=== PATIENT | female | born 1955 | race Caucasian/White ===

== ENCOUNTER → 2021-06-02 | Outpatient (CLI) | payer OTHER | LOC: COL.RAD 09:25 | DX: C50.912 Malignant neoplasm of unspecified site of left female breast (principal) | CPT/HCPCS: A9503 ==

== ENCOUNTER → 2021-06-10 | Outpatient (CLI) | payer OTHER | LOC: COL.RAD 10:00 | DX: C50.912 Malignant neoplasm of unspecified site of left female breast (principal); C79.51 Secondary malignant neoplasm of bone; N28.89 Other specified disorders of kidney and ureter; Z90.12 Acquired absence of left breast and nipple; Z90.710 Acquired absence of both cervix and uterus | CPT/HCPCS: J1644; Q9967 ==

== ENCOUNTER → 2021-10-30 | Outpatient (CLI) | payer OTHER | LOC: COL.RAD 08:48 | DX: C50.912 Malignant neoplasm of unspecified site of left female breast (principal); C50.919 Malignant neoplasm of unspecified site of unspecified female breast; C79.51 Secondary malignant neoplasm of bone | CPT/HCPCS: A9503; Q9967 ==

== ENCOUNTER → 2022-01-22 | Outpatient (CLI) | payer MEDICARE, OTHER | LOC: COL.RAD 09:00 | DX: C50.912 Malignant neoplasm of unspecified site of left female breast (principal); C79.51 Secondary malignant neoplasm of bone; J90 Pleural effusion, not elsewhere classified | CPT/HCPCS: Q9967 ==

== ENCOUNTER 2022-03-25 15:28 | Inpatient (IN) | payer MEDICARE, OTHER ==
[2022-03-25] VITALS (295 sets, daily range): BP systolic 146–154; BP diastolic 92–100; PULSE 88–95; TEMP 98–99.1; O2SAT 79–100
[~2022-03-25] VITALS: Ht 162.6 cm; Wt 65.8 kg
[~2022-03-25 15:28] MED LIST: CEPHALEXIN500 M1 PO
--- NOTE | 2022-03-25 16:52 | NUR ---
PT ADMITTED FROM [facility] BY DR. WHYTE DUE TO HIGH BLOOD SUGARS OVER THE PAST 4-5 DAYS. EDWINA AT THE BEDSIDE; HAS KNOWLEDE OF PAST AND CURRENT MEDICAL ISSUES. PT HAS BEEN EXPERIENCING NAUSEA, VOMITING, DIARRHEA, EXCESSIVE THIRST, AND EXCESSIVE URINATION.PT CURRENTLY LETHARGIC AND IS UNABLE TO ANSWER QUESTIONS WITHOUT FALLING ASLEEP.
[2022-03-25 18:23] LABS: HEMOGLOBIN 11.8 g/dl (12.5-16.0); MEAN CELL VOLUME 87 fl (80.0-100.0); MEAN CORPUSCULAR HEMOGLOBIN 28 pg (27-31); MEAN CORPUSCULAR HGB CONC 32 g/dl (33.0-37.0); MEAN PLATELET VOLUME 10.3 fl (7.4-10.4); PLATELET COUNT 315 K/mm3 (130-400); RED BLOOD COUNT 4.25 M/mm3 (4.10-5.30); REDCELL DISTRIBUTION WIDTH-CV 15.1 % (11.5-14.5)
[2022-03-25 18:28] LABS: PH 5 (5-8); SQUAMOUS EPITHELIAL 0-2 /hpf (0-10); URINE APPEARANCE Clear (CLEAR/HAZY); URINE BACTERIA None Seen /hpf (NONE SEEN); URINE BILIRUBIN Negative (NEGATIVE); URINE BLOOD Negative (NEGATIVE); URINE COLOR Straw (YELLOW); URINE GLUCOSE 3+ (NEGATIVE); URINE KETONE Trace (NEGATIVE); URINE LEUKOCYTE ESTERASE Negative (NEGATIVE); URINE NITRATE Negative (NEGATIVE); URINE PROTEIN(semi-quant) Negative (NEGATIVE); URINE UROBILINOGEN Negative (NEGATIVE)
[2022-03-25 18:39] LABS: ALANINE AMINOTRANSFERASE 22 U/L (0-55); ALBUMIN 3.4 gm/dL (3.4-4.8); ALKALINE PHOSPHATASE 125 U/L (40-150); ANION GAP 21 mmol/L (7-16); AST,SGOT 13 U/L (5-34); BILIRUBIN,TOTAL 0.5 mg/dL (0.2-1.2); BLOOD UREA NITROGEN 56 mg/dL (10-20); CALCIUM 9.4 mg/dL (8.4-10.2); CHLORIDE 97 mmol/L (98-107); CREATININE, serum 1.76 mg/dL (0.57-1.11); POTASSIUM 4.5 mmol/L (3.5-4.5); SODIUM 130 mmol/L (136-145); TOTAL PROTEIN 7.3 gm/dL (6.2-8.1)
[2022-03-25 18:41] LABS: CARBON DIOXIDE 12 mmol/L (23-31); GLUCOSE 807 mg/dL (70-99)
[2022-03-25 18:45] LABS: COLLECTION METHOD CLEAN CATCH
[2022-03-25 18:52] LABS: TROPONIN-I < 0.010 ng/mL (0.00-0.033)
[2022-03-25 19:22] LABS: MAGNESIUM 2.2 mg/dL (1.6-2.6); PHOSPHOROUS 3.5 mg/dL (2.3-4.7)
[2022-03-25 19:25] LABS: BAND 1 % (0-10); LYMPHOCYTE 11 % (20.0-51.0); METAMYELOCYTE 1 % (0-0); NEUTROPHILS 79 % (42.0-75.2); PLATELET ESTIMATE NORMAL (NORMAL)
[2022-03-25 19:26] LABS: SCHISTOCYTES 1+
[2022-03-25 19:27] LABS: ANISOCYTOSIS 1+
[2022-03-25 19:28] LABS: BURR CELLS 1+
[2022-03-25 19:33] LABS: ARTERIAL BLD GAS O2 SATURATION 94.8 % (92-100); ARTERIAL BLD GAS TCO2 CT 13.2; ARTERIAL BLOOD GAS BASE EXCESS -8.1 (-2-2); ARTERIAL BLOOD GAS HCO3 12.7 meq/L (22-26); ARTERIAL BLOOD GAS PCO2 17.1 mmHg (35-45); ARTERIAL BLOOD GAS PO2 72.7 mmHg (80-100); ARTERIAL BLOOD GAS pH 7.49 (7.35-7.45)
--- NOTE | 2022-03-25 19:35 | NUR ---
INSULIN DRIP INITIATED AT 5UN/HR WITH 5UN BOLUS AT THIS TIME PER ORDER, LAST GLUCOSE PER LAB WAS 807 AT 1802.
--- NOTE | 2022-03-25 20:00 | NUR ---
PM ASSESSMENT COMPLETE. PT ORIENTED TO PERSON AND PLACE, SLOW TO RESPOND TO QUESTIONS. NEW AVINA CATHETER PLACED PER ORDER. INSULIN DRIP INITIATED VIA IMPLANTED PORT. PT DENIES PAIN, HOWEVER APPEARS TO HAVE PAIN WHEN MOVING. ONLY REQUEST AT THIS TIME IS A GLASS OF MILK, HOWEVER NPO STATUS EXPLAINED TO PATIENT PER CURRENT ORDERS AND DKA STATUS. WILL BRING MOUTH SWABS/ASSIST WITH ORAL CARE. WILL CONTINUE TO MONITOR.
--- NOTE | 2022-03-25 21:00 | NUR ---
FSBS ON METER READING HI, GLUCOSE VERIFICATION DRAWN AND SENT TO LAB AT 2040. RESULT 525. BASED ON PREVIOUS GLUCOSE LEVEL AT 1802, AVERAGE HOURLY DROP OF 104. INSULIN DRIP TITRATED PER FLOWSHEET. WILL CONTINUE TO MONITOR.
[2022-03-25] MEDS ORDERED: OSCAL 500 TAB500 MG (21:20)
[2022-03-25] MEDS ORDERED: CENTRUM SILVER1 TAB (21:21)
[2022-03-25] MEDS ORDERED: DULOXETINE HCL40 MG PO (21:23)
[2022-03-25] MEDS ORDERED: PEPCID 20MG TAB20 MG PO (21:23)
[2022-03-25] MEDS ORDERED: FOLIC ACID 11 MG/TA1 PO (21:24)
[2022-03-25] MEDS ORDERED: NEURONTIN100 MG/CAP PO (21:24)
[2022-03-25] MEDS ORDERED: SYNTHROID0.1 MG/TAB PO (21:25)
[2022-03-25] MEDS ORDERED: COZAAR 25MG25 MG/TAB PO (21:25)
[2022-03-25] MEDS ORDERED: GLUCOPHAGE500 MG/TAB PO (21:26)
[2022-03-25] MEDS ORDERED: ZOFRAN ODT8 MG PO (21:26)
[2022-03-25] MEDS ORDERED: PIQRAY1 EACH PO (21:27)
[2022-03-25 21:28] LABS: CALCIUM 8.7 mg/dL (8.4-10.2); CREATININE, serum 1.39 mg/dL (0.57-1.11); POTASSIUM 3.6 mmol/L (3.5-4.5)
[2022-03-25] MEDS ORDERED: K-DUR20 MEQ PO (21:28)
[2022-03-25] MEDS ORDERED: SLOW FE142 MG PO (21:29)
[2022-03-25] MEDS ORDERED: MASON NATURAL2000 IU PO (21:29)
[2022-03-25 23:13] LABS: CALCIUM 8.9 mg/dL (8.4-10.2); CREATININE, serum 1.33 mg/dL (0.57-1.11); POTASSIUM 3.4 mmol/L (3.5-4.5)
[2022-03-26] VITALS (1295 sets, daily range): BP systolic 118–135; BP diastolic 60–90; PULSE 84–102; TEMP 97.8–98.5; O2SAT 82–100
[2022-03-26 02:03] LABS: CALCIUM 8.8 mg/dL (8.4-10.2); CREATININE, serum 1.22 mg/dL (0.57-1.11); POTASSIUM 4.1 mmol/L (3.5-4.5)
[2022-03-26 03:32] LABS: CALCIUM 8.8 mg/dL (8.4-10.2); CREATININE, serum 1.21 mg/dL (0.57-1.11); POTASSIUM 4.4 mmol/L (3.5-4.5)
[2022-03-26 05:56] LABS: CALCIUM 8.8 mg/dL (8.4-10.2); CREATININE, serum 1.16 mg/dL (0.57-1.11); POTASSIUM 3.7 mmol/L (3.5-4.5)
[2022-03-26 07:35] LABS: CALCIUM 8.8 mg/dL (8.4-10.2); CREATININE, serum 1.14 mg/dL (0.57-1.11); POTASSIUM 4.2 mmol/L (3.5-4.5)
--- NOTE | 2022-03-26 09:24 | NUR ---
Initial visit attempt; [employer] offers card that enlightens patient to the availability of Spiritual Care at our hospital.
--- NOTE | 2022-03-26 09:27 | NUR ---
Home med rec states patient taking chemoptherapy agent: alpelisib (Piqray). Staff should follow precautions when handling urine and feces for 3 days after last dose or ongoing if actively taking. Notified care team and placed sign outside patient room. Also verified with pharmacy staff to wear double chemo tested gloves if administering.
[2022-03-26 09:43] LABS: CALCIUM 8.6 mg/dL (8.4-10.2); CREATININE, serum 1.06 mg/dL (0.57-1.11); POTASSIUM 4.7 mmol/L (3.5-4.5)
--- NOTE | 2022-03-26 11:08 | NUR ---
packing room worker met with patient to complete intake. Patient reports that she lives at home with her Rafael ([phone]). Patient reports that she is unable to do her ADL's and that her daughter Juana([phone]) helps her. Patient states that she has to utilize a walker to assist with ambulation. PCP is and she see's Dr. Fox for cancer treatments. She take an oral chemo medication that her brought to the hospital. Patient utilizes [facility] pharmacy in [facility] for prescription needs. Patient does have a DPOA-HC/ living will/ DNR that her Rafael brought to the facility. PAlliative care consult requested.
[2022-03-26 11:43] LABS: CALCIUM 8.7 mg/dL (8.4-10.2); CREATININE, serum 1.12 mg/dL (0.57-1.11); POTASSIUM 4.5 mmol/L (3.5-4.5)
--- NOTE | 2022-03-26 13:58 | NUR ---
Several visit attempts; Follow-up with the rd [facility] as patient slept.
--- NOTE | 2022-03-26 15:36 | NUR ---
Met with patient's bedside. Patient sleeping thoughout conversation but did verbally answer that she had no discomfort when directly asked. able to list dates and medications and thorough plan they have been following for cancer treatment. He stated they have also had conversations with patient's PCP about quality of life. At the moment, patient and would like to continue as is. ANTHONY Iyer also at bedside so asked if or patient had ever thought about home health. has had the patient in PT twice a week and states that since he is retired, he is able to be with the patient at all times. Offered our contact information and he thanked us for the visit.
--- NOTE | 2022-03-26 15:56 | NUR ---
ANTHONY and palliative care RN met with patient and patient's to talk about the patients goals of care. Both the patient and her are in agreement that they would like to keep doing treatments for her cancer. She has the bone mets since 2018. states that she had [facility] services but after 10 days "Medicare wouldn't cover it" so it has since ended. Patients states that he not only takes care of the patient but he is also the caregiver for his mother who lives at home with them. states that two weeks ago the patient started going to out patient therapy at [facility].
--- NOTE | 2022-03-26 20:25 | NUR ---
PM ASSESSMENT COMPLETE. PT ASSISTED TO FINISH TEA AND MILK FROM DINNER [employer]RAY. REQUESTS NOTHING ELSE. DENIES PAIN. LUE WITH NOTED LYMPHEDEMA SECONDARY TO PREVIOUS MASTECTOMY. LIMB ALERT BRACELET ON. PT POSITIONED PER COMFORT AT THIS TIME, BLE AND LUE ELEVATED ON PILLOWS. WILL CONTINUE TO MONITOR.
[2022-03-27] VITALS (1405 sets, daily range): BP systolic 106–139; BP diastolic 71–99; PULSE 92–99; TEMP 97.9–98.2; O2SAT 72–100
[2022-03-27 05:43] LABS: MEAN CELL VOLUME 86 fl (80.0-100.0); MEAN CORPUSCULAR HEMOGLOBIN 28 pg (27-31); MEAN CORPUSCULAR HGB CONC 33 g/dl (33.0-37.0); MEAN PLATELET VOLUME 9.6 fl (7.4-10.4); PLATELET COUNT 293 K/mm3 (130-400); RED BLOOD COUNT 3.91 M/mm3 (4.10-5.30); REDCELL DISTRIBUTION WIDTH-CV 15.6 % (11.5-14.5)
[2022-03-27 05:45] LABS: HEMATOCRIT 33.5 % (37.0-47.0)
[2022-03-27 05:59] LABS: CALCIUM 8.5 mg/dL (8.4-10.2); CREATININE, serum 1.04 mg/dL (0.57-1.11); POTASSIUM 3.8 mmol/L (3.5-4.5)
[2022-03-27 06:03] LABS: BAND 3 % (0-10); EOSINOPHIL 1 % (0-4); LYMPHOCYTE 9 % (20.0-51.0); NEUTROPHILS 79 % (42.0-75.2); PLATELET ESTIMATE NORMAL (NORMAL)
--- NOTE | 2022-03-27 07:14 | NUR ---
RECEIVED BEDSIDE SHIFT REPORT FROM TASHI SPEAR. PATIENT IS LYING IN BED WITH EYES OPEN. PATIENT IS HARD OF HEARING PER REPORT. VITAL SIGNS STABLE. AVINA CATHETER STILL IN PLACE. PATENT AND DRAINING TO GRAVITY. PATIENT'S CHEST PORT IN PLACE, ACCESSED, PATENT AND WITH GOOD BLOOD RETURN. CALL LIGHT WITHIN REACH. NO FLUIDS OR MEDS RUNNING AT THIS TIME.
--- NOTE | 2022-03-27 09:51 | NUR ---
PATIENT'S , JIMMIE, AT BEDSIDE. GIVEN UPDATE AND ADDRESSED QUESTIONS AND CONCERNS.
--- NOTE | 2022-03-27 09:51 | NUR ---
DR. BHATT AT BEDSIDE. DISCUSSED PATIENT PLAN OF CARE. ORDERS RECEIVED AND QUESTIONS ADDRESSED. AGREEABLE TO NURSE SUGGESTIONS OF TAKING AVINA OUT, A DOSE OF LASIX AND RESUMING CHEMOTHERAPY MEDICATION.
--- NOTE | 2022-03-27 10:12 | NUR ---
RESPIRATORY THERAPY ATTEMPTED TO DRAW ABG WITH NO SUCCESS. CALLED DR. BHATT TO SEE IF A VBG WOULD BE A DECENT SUBSTITUTE. AGREEABLE. DRAWN FROM PATIENT'S CENTRAL LINE AND GIVEN TO RESPIRATORY. NEW ORDERS PLACED.
--- NOTE | 2022-03-27 10:32 | NUR ---
CASE MANAGEMENT CAME TO SEE PATIENT AND ALSO TALKED WITH . THEY ARE AGREEABLE TO HAVING HOME CARE AND PHYSICAL/OCCUPATIONAL THERAPY WORK WITH PATIENT.
--- NOTE | 2022-03-27 14:57 | NUR ---
Referral faxed to [facility]
[2022-03-28] VITALS (706 sets, daily range): BP systolic 118–127; BP diastolic 73–91; PULSE 91–103; TEMP 98–98.6; O2SAT 90–98
--- NOTE | 2022-03-28 02:00 | NUR ---
PT ARRIVED VIA EMS FROM [facility]. AWAKE, AAOX4. DENIES PAIN, SOA, OR N/V. NOTED SWELLING TO L ELBOW, MARKED FROM PREVIOUS FACILITY AND NEW BORDER MARKED AT THIS TIME. CALL TO DR. MURILLO TO NOTIFY OF PT'S ARRIVAL, STATES OK TO START ANTIBIOTICS NOW AND HE WILL BE IN IN A FEW HOURS. PT TACHYCARDIC AND SBP 90-100 AT THIS TIME. NS INFUSING AT 150ML/HR TO RFA PIC. WILL CONTINUE TO MONITOR.
[2022-03-28 05:47] LABS: HEMOGLOBIN 11.4 g/dl (12.5-16.0); MEAN CELL VOLUME 85 fl (80.0-100.0); MEAN CORPUSCULAR HEMOGLOBIN 28 pg (27-31); MEAN CORPUSCULAR HGB CONC 33 g/dl (33.0-37.0); MEAN PLATELET VOLUME 10.2 fl (7.4-10.4); PLATELET COUNT 317 K/mm3 (130-400); RED BLOOD COUNT 4.05 M/mm3 (4.10-5.30); REDCELL DISTRIBUTION WIDTH-CV 15.6 % (11.5-14.5)
[2022-03-28 06:10] LABS: HEMATOCRIT 34.5 % (37.0-47.0)
[2022-03-28 06:16] LABS: CALCIUM 8.5 mg/dL (8.4-10.2); CREATININE, serum 1.18 mg/dL (0.57-1.11); POTASSIUM 3.4 mmol/L (3.5-4.5)
[2022-03-28 06:50] LABS: BAND 1 % (0-10); EOSINOPHIL 3 % (0-4); LYMPHOCYTE 22 % (20.0-51.0); NEUTROPHILS 71 % (42.0-75.2)
[2022-03-28 06:52] LABS: ANISOCYTOSIS 1+; HYPOCHROMIA 1+; PLATELET ESTIMATE NORMAL (NORMAL)
[2022-03-28 06:53] LABS: TEAR DROP CELLS 1+
--- NOTE | 2022-03-28 07:00 | NUR ---
Pt resting in bed. VSS. Pt denies needs at this time. Pt has call light within reach.
[2022-03-28] MEDS ORDERED: LEVEMIR FLEX100 U/ML SQ (13:19)
--- NOTE | 2022-03-28 13:51 | NUR ---
Marly with social work notified of discharge and need for HHC and PT. Pt's back bedside.
--- NOTE | 2022-03-28 13:52 | NUR ---
SW informed that patient would be discharging on this day and would need assistance with HH service set up. SW spoke with patient's spouse who is the caregiver of patient. Spouse stated that preference for services is [facility]. DC documentation obtained and faxed to facility. SW also contacted radio station manager staff at [facility] to inform of patient discharge. Staff will be contacting spouse to set up services. Nothing further.
--- NOTE | 2022-03-28 14:50 | NUR ---
IV, TELE, AND PORT DC'D. PT DRESSED AND UP TO WHEELCHAIR. DISCHARGE INSTRUCTIONS DISCUSSED WTIH PT AND HER . DISCUSSED HOMECARE, NEW INSULIN, AND FOLLOW UPS. HOME MEDS GIVEN BACK TO PT. ALL QUESTIONS ANSWERED. PT WHEELED OUT TO CAR FOR DISCHARGE.
== END 2022-03-28 14:58 | disposition home health service (06) | DRG 637 ==
LOC: ICU 15:28
PROVIDERS: Family Medicine; Nurse Practitioner Family; ADMIT Student in an Organized Health Care Education/Training Program
DX: E11.10 Type 2 diabetes mellitus with ketoacidosis without coma (principal); G93.41 Metabolic encephalopathy; N17.9 Acute kidney failure, unspecified; L97.119 Non-pressure chronic ulcer of right thigh with unspecified severity; C79.51 Secondary malignant neoplasm of bone; E87.1 Hypo-osmolality and hyponatremia; E87.4 Mixed disorder of acid-base balance; E44.0 Moderate protein-calorie malnutrition; E87.3 Alkalosis; I10 Essential (primary) hypertension; E03.9 Hypothyroidism, unspecified; F32.A Depression, unspecified; Z20.822 Contact with and (suspected) exposure to COVID-19; K21.9 Gastro-esophageal reflux disease without esophagitis; G62.9 Polyneuropathy, unspecified; F41.9 Anxiety disorder, unspecified; C50.919 Malignant neoplasm of unspecified site of unspecified female breast; E11.40 Type 2 diabetes mellitus with diabetic neuropathy, unspecified; D72.829 Elevated white blood cell count, unspecified; D64.9 Anemia, unspecified; E11.622 Type 2 diabetes mellitus with other skin ulcer; Z79.890 Hormone replacement therapy; Z79.84 Long term (current) use of oral hypoglycemic drugs; Z87.891 Personal history of nicotine dependence; Z88.6 Allergy status to analgesic agent; Z88.8 Allergy status to other drugs, medicaments and biological substances
CPT/HCPCS: 99223-AI; 99233-AI; 99239; J1650; J1815; J1940; J3480; J7030

== ENCOUNTER 2022-04-27 11:28 | Day surgery (SDC) | payer MEDICARE, OTHER ==
[~2022-04-27] VITALS: Ht 135.8 cm; Wt 61.4 kg
[~2022-04-27 11:28] MED LIST changes: +CENTRUM SILVER1 TAB PO; +COZAAR 25MG25 MG/TAB PO; +DULOXETINE HCL40 MG PO; +FOLIC ACID 11 MG/TA1 PO; +GLUCOPHAGE500 MG/TAB PO; +K-DUR20 MEQ PO; +LEVEMIR FLEX100 U/ML SQ; +MASON NATURAL2000 IU PO; +NEURONTIN100 MG/CAP PO; +OSCAL 500 TAB500 MG PO; +PEPCID 20MG TAB20 MG PO; +PIQRAY1 EACH PO; +SLOW FE142 MG PO; +SYNTHROID0.1 MG/TAB PO; +ZOFRAN ODT8 MG PO
[2022-04-27] MEDS ORDERED: LEVEMIR FLEX100 U/ML SQ (14:20)
[2022-04-27 14:30] VITALS: BP 116/60; PULSE 84; TEMP 97.3
--- NOTE | 2022-04-27 14:30 | NUR ---
1430 ADMITTED TO ROOM 8 FROM PACU. PATIENT AWAKE, ALERT. RESP CLEAR SPONTANEOUS. VITAL SIGNS OBTAINED. PATIENT DENIES PAIN. ALLEVYN DRESSING TO RIGHT HIP CLEAN DRY AND INTACT. IN ROOM. 1515 TOLERATES PO JUICE WITHOUT NAUSEA. 1530 DISCHARGE INSTRUCTIONS REVIEWED WITH PATIENT AND VERBALIZING UNDERSTANDING. COPY OF INSTRUCTIONS AND EDUCATIONAL MATERIALS PROVIDED. 1547 SITS ON EDGE OF CART. DRESSES SELF WITH ASSISTANCE FROM .
[2022-04-27 14:45] VITALS: BP 107/57; PULSE 82
[2022-04-27 15:00] VITALS: BP 123/65; PULSE 80
[2022-04-27 15:15] VITALS: BP 125/66; PULSE 80
[2022-04-27 15:45] VITALS: BP 121/72; PULSE 84
[2022-04-27 16:08] VITALS: BP 112/81; PULSE 88; TEMP 97.8
== END 2022-04-27 15:55 | disposition home or self-care (01) ==
LOC: SDCO 11:28
DX: L89.213 Pressure ulcer of right hip, stage 3 (principal); C50.912 Malignant neoplasm of unspecified site of left female breast; C79.51 Secondary malignant neoplasm of bone; E11.9 Type 2 diabetes mellitus without complications; Z79.4 Long term (current) use of insulin; Z79.84 Long term (current) use of oral hypoglycemic drugs
CPT/HCPCS: J0690; J1100; J2405; J2704; J3010; J7120

== ENCOUNTER → 2022-05-27 | Outpatient (CLI) | payer MEDICARE, OTHER | LOC: COL.VAS 10:00 | DX: I51.7 Cardiomegaly (principal); I34.0 Nonrheumatic mitral (valve) insufficiency; C50.912 Malignant neoplasm of unspecified site of left female breast ==

== ENCOUNTER 2022-06-16 08:54 | Outpatient (CLI) | payer MEDICARE, OTHER ==
[2022-06-16] VITALS (11 sets, daily range): BP systolic 100–128; BP diastolic 56–93; PULSE 73–83; TEMP 97.4–98.7
[~2022-06-16] VITALS: Ht 135.8 cm; Wt 55.6 kg
[2022-06-16] MEDS ORDERED: LEVEMIR FLEX100 U/ML SQ (09:33)
== END 2022-06-16 16:10 | disposition home or self-care (01) ==
LOC: EUO 08:54
DX: C50.912 Malignant neoplasm of unspecified site of left female breast (principal)
CPT/HCPCS: J1644; J7050; P9016

== ENCOUNTER → 2022-08-20 | Outpatient (CLI) | payer MEDICARE, OTHER | LOC: COL.VAS 08:49 | DX: C50.912 Malignant neoplasm of unspecified site of left female breast (principal) ==

== ENCOUNTER 2022-12-20 19:05 | Inpatient (IN) | payer MEDICARE, OTHER ==
[~2022-12-20] VITALS: Ht 162.6 cm; Wt 57.3 kg
[2022-12-20 19:48] LABS: MEAN CELL VOLUME 97 fl (80.0-100.0); MEAN CORPUSCULAR HGB CONC 32 g/dl (33.0-37.0); MEAN PLATELET VOLUME 9.4 fl (7.4-10.4); PLATELET COUNT 246 K/mm3 (130-400); REDCELL DISTRIBUTION WIDTH-CV 17.7 % (11.5-14.5)
[2022-12-20 20:02] LABS: ALBUMIN 2.6 gm/dL (3.4-4.8); BILIRUBIN,TOTAL 0.4 mg/dL (0.2-1.2); CALCIUM 9.2 mg/dL (8.4-10.2); CREATININE, serum 1.14 mg/dL (0.57-1.11); POTASSIUM 3.4 mmol/L (3.5-4.5); TOTAL PROTEIN 6.3 gm/dL (6.2-8.1)
[2022-12-20 20:05] LABS: HEMATOCRIT 29.2 % (37.0-47.0); HEMOGLOBIN 9.4 g/dl (12.5-16.0); MEAN CORPUSCULAR HEMOGLOBIN 31 pg (27-31)
[2022-12-20 20:32] LABS: ANISOCYTOSIS 2+; BAND 12 % (0-10); LYMPHOCYTE 6 % (20.0-51.0); NEUTROPHILS 80 % (42.0-75.2); OVALOCYTES 1+; PLATELET ESTIMATE NORMAL (NORMAL)
[2022-12-20 21:52] VITALS: BP 103/56; PULSE 91; TEMP 101.1
--- NOTE | 2022-12-20 22:22 | NUR ---
PT ARRIVED TO ROOM 304. PT RESTING CALMLY IN BED. PT ALERT AND ORIENTED X3 SOME TIMES STRUGGLES WITH SITUATION. PTS SPEECH IS SLIGHTLY SLURRED AND JUMBLED BUT PATIENT IS ABLE TO FORM CLEAR UNDERSTANDABLE SENTENCES
[2022-12-20 22:26] VITALS: BP 93/62; PULSE 115; TEMP 97.6
[2022-12-20 23:38] VITALS: PULSE 82
[2022-12-21 02:44] VITALS: BP 95/58; PULSE 66; TEMP 97.9
[2022-12-21 06:38] LABS: MEAN CELL VOLUME 100 fl (80.0-100.0); MEAN CORPUSCULAR HGB CONC 32 g/dl (33.0-37.0); MEAN PLATELET VOLUME 9.8 fl (7.4-10.4); PLATELET COUNT 198 K/mm3 (130-400); RED BLOOD COUNT 2.38 M/mm3 (4.10-5.30); REDCELL DISTRIBUTION WIDTH-CV 17.8 % (11.5-14.5)
[2022-12-21 06:39] LABS: HEMATOCRIT 23.9 % (37.0-47.0); HEMOGLOBIN 7.6 g/dl (12.5-16.0); MEAN CORPUSCULAR HEMOGLOBIN 32 pg (27-31)
[2022-12-21 06:52] LABS: CALCIUM 8.2 mg/dL (8.4-10.2); CREATININE, serum 0.97 mg/dL (0.57-1.11); MAGNESIUM 1.8 mg/dL (1.6-2.6); POTASSIUM 3.9 mmol/L (3.5-4.5)
--- NOTE | 2022-12-21 07:00 | NUR ---
PT IS RESTING IN BED. PT HAS NS RUNNING. PT IN ISOLATION FOR COVID. BEDALARM ACTIVE. PT HAS CALL LIGHT AND INSTRUCTED TO CALL WITH ALL NEEDS.
[2022-12-21 07:16] LABS: ANISOCYTOSIS 2+; BAND 8 % (0-10); LYMPHOCYTE 11 % (20.0-51.0); METAMYELOCYTE 2 % (0-0); NEUTROPHILS 76 % (42.0-75.2); PLATELET ESTIMATE NORMAL (NORMAL)
[2022-12-21 07:35] VITALS: BP 98/64; PULSE 60; TEMP 97.5
[2022-12-21 12:02] VITALS: BP 101/66; PULSE 60; TEMP 97.7
--- NOTE | 2022-12-21 13:05 | NUR ---
SW attempted to contact patient via room phone due to covid + and was unsuccessful. Phone call made to the patients Sherif ([phone]) to complete intake. Per Sherif, together they live at home alone in [place]. Patient is someone independent with her ADL's but her spouse has to assist with showering and dressing. Patient utilizes a walker to assist with ambulation and have a shower transfer bench and grab bars installed in the bathroom. Patient has no home oxygen needs. PCP is and she sees for oncology needs. Patient does have a DPOA-HC established listing [facility] and her daughter Juana ([phone]) which can be located in her EMR. Per Sherif, patient has had home health services in the past but in unsure of what agency it was through. PT/OT order requested to hospitalist. Discharge plan: Home w/ HH vs. SNF
--- NOTE | 2022-12-21 14:44 | NUR ---
STATES PT'S MENTATION AND NEURO STATUS AT BASELINE. PT IS ORIENTED BUT SLOW TO RESPOND. PT ANSWERS QUESTIONS APPROPRIATELY. NOTIFIED.
[2022-12-21 14:54] LABS: COLLECTION METHOD CLEAN CATCH
[2022-12-21 15:01] LABS: PH 5.5 (5.0-8.5); URINE APPEARANCE Clear (CLEAR/HAZY); URINE COLOR Yellow (YELLOW); URINE GLUCOSE Negative (NEGATIVE); URINE KETONE Negative (NEGATIVE); URINE NITRATE Negative (NEGATIVE); URINE PROTEIN(semi-quant) 1+ (NEGATIVE); URINE UROBILINOGEN 0.2 E.U/dL (0.2-1.0)
[2022-12-21 15:02] LABS: URINE BLOOD TRACE-LYSED (NEGATIVE)
[2022-12-21 15:31] VITALS: BP 102/63; PULSE 67; TEMP 98.1
[2022-12-21 16:36] LABS: SQUAMOUS EPITHELIAL 0-2 /hpf (0-10); URINE BACTERIA None Seen /hpf (NONE SEEN); URINE RBC 0-2 /hpf (0-2)
[2022-12-21 19:16] VITALS: BP 110/68; PULSE 59; TEMP 97.7
[2022-12-21 23:17] VITALS: BP 118/72; PULSE 63; TEMP 97.7
[2022-12-22 03:16] VITALS: BP 110/63; PULSE 64; TEMP 97.5
--- NOTE | 2022-12-22 07:00 | NUR ---
PT RESTING IN BED. PT HAS CALL LIGHT AND INSTRUCTED TO CALL WITH ALL NEEDS. BED ALARM ACTIVE. 0845-LABS DRAWN FROM PORT. PORT FLUSHES WELL BUT IS SLOW TO DRAW ORTHO VS COMPLETED AND NEGATIVE. PT DENIES DIZZINESS. PT TO HAVE MRI AT 1100, AND PT NOTIFIED.
--- NOTE | 2022-12-22 07:00 | NUR ---
PT RESTING IN BED. PT IS TO DC TO HOSPICE HOUSE AT 1100 TODAY. PT GIVEN CALL LIGHT AND INSTRUCTED TO CALL WITH ALL NEEDS. BED ALARM ACTIVE.
[2022-12-22 07:15] VITALS: BP 108/59; PULSE 73; TEMP 98.6
[2022-12-22 08:41] VITALS: BP 115/68; PULSE 60
[2022-12-22 09:00] LABS: MEAN CELL VOLUME 101 fl (80.0-100.0); MEAN CORPUSCULAR HGB CONC 31 g/dl (33.0-37.0); MEAN PLATELET VOLUME 9.6 fl (7.4-10.4); PLATELET COUNT 180 K/mm3 (130-400); RED BLOOD COUNT 2.52 M/mm3 (4.10-5.30); REDCELL DISTRIBUTION WIDTH-CV 17.8 % (11.5-14.5)
[2022-12-22 09:01] LABS: HEMATOCRIT 25.5 % (37.0-47.0); MEAN CORPUSCULAR HEMOGLOBIN 32 pg (27-31)
[2022-12-22 09:14] LABS: CALCIUM 8.2 mg/dL (8.4-10.2); CREATININE, serum 0.84 mg/dL (0.57-1.11); POTASSIUM 3.5 mmol/L (3.5-4.5)
--- NOTE | 2022-12-22 09:23 | NUR ---
Initial visit; Patient is in Isolation. Depot Manager left a "Card of Hope" with patient's nurse to give to her wishing her God's blessings.
--- NOTE | 2022-12-22 10:05 | NUR ---
SENTHIL RN WITH CARDIOLOGY CALLED AND ASKED IF CARDIOLOGY HAS READ PT'S ECHO COMPLETED 12/21 AM. SHE STATES WILL REVIEW AND MAKE SURE IT GETS UPLOADED.
--- NOTE | 2022-12-22 11:57 | NUR ---
PT DOWN TO MRI. NURSE CALLED TO PUSH CONTRAST, BLOOD RETURN NOTED. FLUSHED WITH 30 CC NS WITH BLOOD RETURN NOTED AFTER THE SECOND FLUSH.
[2022-12-22 12:03] VITALS: BP 129/73; PULSE 62; TEMP 97.3
[2022-12-22] MEDS ORDERED: CEFTIN500 MG PO (15:08)
[2022-12-22] MEDS ORDERED: DOXYCYCLINE 10100 MG PO (15:08)
[2022-12-22] MEDS ORDERED: DECADRON6 MG PO (15:09)
--- NOTE | 2022-12-22 15:30 | NUR ---
The patient's RN notified ANTHONY that the hospitalist is discharging the patient today. PT notes that they will continue to monitor. OT recommends home with home health and family assist. ANTHONY contacted the patient's , Sherif, to review discharge plan and discuss OT's recommendation. Sherif confirms plan to return home and states that they would be interested in home health. He states that the patient had home health from [facility] in the past and they would prefer them again. ANTHONY contacted and faxed a referral to Jj at [facility] . Jj states that they are able to accept the patient. The patient is to discharge back home with her today, 12/22, with home health services for chcf/PT/OT from [facility] . SW to fax orders to [facility], once finalized. No additional needs at this time.
--- NOTE | 2022-12-22 16:12 | NUR ---
PORT FLUSHED WITH HEPARIN. PORT DCD. DISCHARGE INSTRUCTIONS DISCUSSED WITH PT AND . ALL QUESITONS ANSWERED.
--- NOTE | 2022-12-22 16:19 | NUR ---
PT WHEELED OUT BY [facility].
== END 2022-12-22 16:19 | disposition home health service (06) | DRG 871 ==
LOC: COL.ER 19:05 → MEDICAL 20:31
PROVIDERS: Emergency Medicine; Student in an Organized Health Care Education/Training Program; ADMIT Internal Medicine
DX: A41.89 Other specified sepsis (principal); J96.01 Acute respiratory failure with hypoxia; U07.1 COVID-19; C79.51 Secondary malignant neoplasm of bone; E87.1 Hypo-osmolality and hyponatremia; D84.9 Immunodeficiency, unspecified; K21.9 Gastro-esophageal reflux disease without esophagitis; E11.40 Type 2 diabetes mellitus with diabetic neuropathy, unspecified; I10 Essential (primary) hypertension; F41.9 Anxiety disorder, unspecified; F32.A Depression, unspecified; E03.9 Hypothyroidism, unspecified; C50.919 Malignant neoplasm of unspecified site of unspecified female breast; E86.0 Dehydration; I95.1 Orthostatic hypotension; E87.6 Hypokalemia; Z88.6 Allergy status to analgesic agent; Z88.8 Allergy status to other drugs, medicaments and biological substances; Z79.890 Hormone replacement therapy; Z90.710 Acquired absence of both cervix and uterus; Z90.12 Acquired absence of left breast and nipple; Z79.4 Long term (current) use of insulin; Z23 Encounter for immunization
CPT/HCPCS: A9575; J0248; J0696; J1100; J1644; J1650; J7030; J7050